=== PATIENT | female | born 1980 | race Hispanic/Latino ===

== ENCOUNTER 2016-07-29 15:07 | Emergency (ER) | payer OTHER ==
[2016-07-29 16:59] LABS: BASO % 0.3 % (0.0-2.0); EOS # 0.3 K/uL (0.0-0.7); EOS % 3.2 % (0.0-4.0); HEMATOCRIT 30.9 % (34.0-47.0); LYMPH # 1.7 K/uL (1.0-4.3); LYMPH % 16.1 % (20.0-40.0); MEAN CELL VOLUME 88.8 fL (81.0-99.0); MEAN CORPUSCULAR HEMOGLOBIN 29.7 pg (27.0-31.0); MEAN CORPUSCULAR HGB CONC 33.5 g/dL (33.0-37.0); MONO # 0.9 K/uL (0.0-0.8); RED CELL DISTRIBUTION WIDTH 13.8 % (11.5-14.5); WHITE BLOOD COUNT 10.4 K/uL (4.8-10.8)
[2016-07-29] MEDS ORDERED: Lactated Ringer's 1,000 ML IV ONE (17:33)
[2016-07-29 17:58] LABS: RBC URINE < 1 /hpf (0-3); URINE BACTERIA OCC (<OCC); URINE BILIRUBIN NEGATIVE (NEGATIVE); URINE BLOOD NEGATIVE (NEGATIVE); URINE COLOR Straw (YELLOW); URINE GLUCOSE (UA) NORMAL (Normal); URINE KETONE NEGATIVE (NEGATIVE); URINE LEUKOCYTE ESTERASE NEG Leu/uL (Negative); URINE PROTEIN NEGATIVE (NEGATIVE); URINE UROBILINOGEN NORMAL mg/dL (0.2-1.0); WBC URINE 1 /hpf (0-5)
--- NOTE | 2016-07-29 20:55 | OBHP ---
Datetime: 07/29/2016 18:00 IP Admit Plan: Discharge home Admit Comment, IP Provider: chief complaint-s/p fall HPI 35 y/o at 35.2 wga , s/p slip at 1.30 pm while enetring tana sheriff.Patient states she sl ipped and landed on her buttock.Denies abdomial trauma.Denies vaginal bleeidng or loss of fluid Denies nausea, vomiting, headache, chest pain, shortness of breath course - care withbrendan torres PMH denies PSH denies OBGYN HX Social hx denies tobacco,alcohol or illicit drug use Exam see exam section A/P 35 y/o at 35.2 wga s/p fall -check labs -continuous monitoring -iv fluids -monitor closely 8.50 p, patient denies any abdominal pain labs h/h10.3/30.9 plt 180k.ul fibrinogen 346 ultrasound bpp 8/8 fht cat1 toco irritability improved with iv fluids patient to be discharged as per dr torres follow up in am with dr torres Pelvic Type - PN: Adequate Extremities - PN: Normal Abdomen - PN: Normal Back - PN: Normal Lungs - PN: Normal Heart - PN: Normal Neurologic - PN: Normal General - PN: Normal Contraction Comments Provider: irritability Gestation - Est Wks by US: 35.2 IP Hx Assessment: The History has been Reviewed and is Current EGA AdmitDate IP: 35.2 Vital Signs Provider: Reviewed IP Chief Complaint: Trauma/Fall FHR Category Provider Fetus A: Category I Dilatation, Provider: 0 Genitourinary Exam: Normal DTRs - PN: Normal
--- NOTE | 2016-07-30 08:51 | US ---
PROCEDURE: Obstetrical ultrasound examination and biophysical profile HISTORY: pt. slipped on floor today 07/29/16 @1330 COMPARISON: Not available TECHNIQUE: Transabdominal FINDINGS: The examination demonstrates a single live intrauterine gestation in cephalic presentation. The heart rate is 142 beats per minute. A normal quantity of amniotic fluid is visualized. The DEBRA is 10.8 cm. The cervix is closed and measures 3.4 cm in length. There is no evidence of placenta previa. A normal anterior placenta is identified. biometry yields an average ultrasound age of 36 weeks 2 days. The MEDARDO by ultrasound is 08/24/2016. The estimated weight is 2739 g. Limited anatomic evaluation demonstrates a 4 chamber heart. No gross abnormality of the spine is evident. There is fluid distending the stomach and urinary bladder. Two normal kidneys are visualized without evidence of hydronephrosis. A three-vessel umbilical cord is identified. The anterior abdominal wall is intact. Limited biophysical profile examination yields a score of 8 out of 8. IMPRESSION: Single live intrauterine gestation of approximately 36 weeks 2 days gestational age. EFW is 2739 g. heart rate 142 beats per minute. Normal amniotic fluid volume. No evidence of placenta previa. Anterior placenta. Cervix long and closed. Biophysical profile score is 8 out of 8. Preliminary interpretation of this examination was reported by [facility] at 8:26 p.m. on 07/29/2016. There is concurrence of this report with the preliminary interpretation.
== END 2016-07-29 20:58 | disposition home or self-care (01) ==
LOC: C.EROB 15:07
DX: O9A.213 Injury, poisoning and certain other consequences of external causes complicating pregnancy, third trimester (principal); M53.3 Sacrococcygeal disorders, not elsewhere classified; M25.561 Pain in right knee; W01.0XXA Fall on same level from slipping, tripping and stumbling without subsequent striking against object, initial encounter; Y93.89 Activity, other specified; Y92.512 Supermarket, store or market as the place of occurrence of the external cause; Z3A.35 35 weeks gestation of pregnancy
CPT/HCPCS: 76818; 81001; 85025; 85384; 85610; 86850; 86900; 99283; J7120

== ENCOUNTER 2016-08-20 14:16 | Inpatient (IN) | payer OTHER ==
--- NOTE | 2016-08-20 14:48 | OBADHP ---
Datetime: 08/20/2016 14:42 IP Chief Complaint Other: c/o itching Admit Comment, IP Provider: at 38 +weeks came with c/o itching all over her body and de fm, no vb, lof, occ ctxs. obhx 1 x pmh choleostasis of preg med pnv all nkda psh de soch denies ve /-3 a/p at 38+weks with choleostasis of preg/itching admit to l_d npo/ivf labs cervidil cont rohit and efm anticipate dr torres aware Pelvic Type - PN: Adequate Extremities - PN: Normal Abdomen - PN: Normal Back - PN: Normal Breast - PN: Not Done Lungs - PN: Normal Heart - PN: Normal Thyroid - PN: Not Done Neurologic - PN: Normal HEENT - PN: Normal General - PN: Normal FHR - Baseline A Provider: 130 Contraction Comments Provider: irrg Comments, ACOG Physical Exam: gravid,non tender ext no edema,no calf ten occ rash IP Hx Assessment: The History has been Reviewed and is Current Vital Signs Provider: Reviewed; Within Normal Limits IP Chief Complaint: Decreased movement NICHD Variability Prov Fetus A: Moderate 6-25bpm NICHD Accel Fetus A IP Provider: [id number] FHR Category Provider Fetus A: Category I Dilatation, Provider: 1 Effacement, Provider: 50 Station, Provider: -3 Genitourinary Exam: Normal DTRs - PN: Normal EGA AdmitDate IP: 38.3 IP Adm Impression: , intrauterine IP Admit Plan: Admit to unit; Initiate labor induction protocol Datetime: 07/29/2016 18:00 Gestation - Est Wks by US: 35.2
[2016-08-20 14:50] VITALS: BMI 28.5
[2016-08-20] MEDS ORDERED: Nalbuphine 20 mg/ml Inj (1 ml) IVP PRN ×2 (15:00→21:00)
[2016-08-20] MEDS: Lactated Ringer's 1,000 ML IV SCH (16:04)
[2016-08-20 16:16] LABS: BASO % 0.3 % (0.0-2.0); EOS # 0.3 K/uL (0.0-0.7); EOS % 3.2 % (0.0-4.0); HEMOGLOBIN 10.9 g/dL (11.0-16.0); LYMPH # 1.9 K/uL (1.0-4.3); LYMPH % 17.6 % (20.0-40.0); MEAN CELL VOLUME 89.3 fL (81.0-99.0); MEAN CORPUSCULAR HEMOGLOBIN 30.1 pg (27.0-31.0); MEAN CORPUSCULAR HGB CONC 33.7 g/dL (33.0-37.0); MEAN PLATELET VOLUME 9.1 fL (7.2-11.7); MONO # 1.1 K/uL (0.0-0.8); NEUT # 7.4 K/uL (1.8-7.0); NEUT % 68.9 % (50.0-75.0); RBC 3.6 Mil/uL (3.80-5.20); RED CELL DISTRIBUTION WIDTH 13.9 % (11.5-14.5); WHITE BLOOD COUNT 10.7 K/uL (4.8-10.8)
[2016-08-20 16:22] LABS: ALBUMIN 3.4 g/dL (3.5-5.0)
[2016-08-20 16:24] LABS: GFR AFRICAN-AMERICAN > 60; GFR NON-AFRICAN AMERICAN > 60
[2016-08-20 16:25] LABS: ALB/GLOB RATIO 0.9 (1.0-2.1); ALT/SGPT 23 U/L (9-52); AST/SGOT 22 U/L (14-36); BLOOD UREA NITROGEN 7 mg/dL (7-17); CALCIUM 8.3 mg/dl (8.6-10.4)
[2016-08-20 16:32] LABS: SQUAMOUS EPITHIAL 1 /hpf (0-5); URINE BACTERIA RARE (<OCC); URINE BILIRUBIN NEGATIVE (NEGATIVE); URINE BLOOD NEGATIVE (NEGATIVE); URINE CLARITY Clear (Clear); URINE COLOR Straw (YELLOW); URINE GLUCOSE (UA) NORMAL (Normal); URINE LEUKOCYTE ESTERASE NEG Leu/uL (Negative); URINE NITRATE NEGATIVE (NEGATIVE); URINE PROTEIN NEGATIVE (NEGATIVE); URINE UROBILINOGEN NORMAL mg/dL (0.2-1.0)
[2016-08-20] MEDS ORDERED: Nalbuphine 20 mg/ml Inj (1 ml) ONE ×2 (18:20→22:30)
[2016-08-20] MEDS ORDERED: Oxytocin 30 UNIT 500 ML IV PRN (20:58)
[2016-08-21] MEDS ORDERED: Lidocaine 2% Inj (20ml) ONE (01:48)
[2016-08-21] MEDS ORDERED: Benzocaine/Menthol 20%-0.5% Topical Spray (60 ml) TOP PRN (02:22)
[2016-08-21] MEDS ORDERED: Oxycodone/Acetaminophen 5/325 mg Tab PO PRN (02:22)
--- NOTE | 2016-08-21 02:22 | OBDS ---
DELIVERY PERSONNEL Delivery Doctor: Javad Torres MD Scrub Nurse: Gissell Bustamante Dehydration Unit Operator: Peggy Calzada RN Anesthesiologist: dr. downey MATERNAL INFORMATION Delivery Anesthesia: None Medications in Delivery: pitocin 20 units Estimated Blood Loss (ml): 250 Placenta Cultured: No Maternal Complications: Precipitous Labor (<3hrs) RN Comments: live baby girl at 0144. dr. torres arrived as head . 9/9. no abnormal f inding. Provider Comments: pt was fully dilated and pushing, precipitous delivery. Both oral and nasal pass ages of baby bulb suctioned. umbicla cord was clamped and cut. baby hadned to mother on abdomen wiht rn assistance. cord blood collected x 2. first degree perineal laceration repaired with 3-0 chromic. Fundus firm, good hemostasis. no complications. live female apgars 9, 9 weight of 7lbs poun ds. ebl 250ml no coomplications LABOR SUMMARY EDC: 09/07/2016 00:00 No. Babies in Womb: 1 Attempted: No Labor Anesthesia: IV Sedation LABOR INFORMATION Reason for Induction: Other Reason for Induction Other: cholestasis Onset of Labor: 08/20/2016 20:58 Complete Dilatation: 08/21/2016 01:30 Cervical Ripening Agents: Cervidil Other Ripening Agents: n/a Oxytocin: N/A Group B Beta Strep: Negative Antibiotics # of Doses: 0 Steroids Given: None Reason Steroids Not Administered: Not Applicable MEMBRANES Membranes Rupture Method: Spontaneous Rupture of Membranes: 08/21/2016 00:21 Length of Rupture (hrs): 1.38 Amniotic Fluid Color: Clear Amniotic Fluid Amount: Moderate Amniotic Fluid Odor: Normal STAGES OF LABOR Stage 1 hrs: 4 Stage 1 min: 32 Stage 2 hrs: 0 Stage 2 min: 14 Stage 3 hrs: 0 Stage 3 min: 3 Total Time in Labor hrs: 4 Total Time in Labor min: 49 VAGINAL DELIVERY Episiotomy: None Laceration Extension: First Degree Laceration Type: Perineal Other Laceration: n/a Laceration Repair: Yes Initial Vag Sponge Count: 10 Final Vag Sponge Count: 10 Initial Vag Sharps Count: 0 Final Vag Sharps Count: 2 Sponge Count Correct: Yes Sharps Count Correct: Yes Count Comment: count correct and confirmed BABY A INFORMATION Delivery Date/Time: 08/21/2016 01:44 Method of Delivery: Vaginal Born in Route : No : N/A Forceps: N/A Vacuum Extraction: N/A Shoulder Dystocia : No SHOULDER DYSTOCIA BABY A Delivery Date/Time: 08/21/2016 01:44 PRESENTATION/POSITION BABY A Presentation: Cephalic Cephalic Presentation: Vertex Vertex Position: Left Occipital Anterior Breech Presentation: N/A PLACENTA INFORMATION BABY A Placenta Delivery Time : 08/21/2016 01:47 Placenta Method of Delivery: Spontaneous Placenta Status: Delivered SCORES BABY A Heart Rate 1 min: >100 bpm Resp Effort 1 min: Good Cry Reflex Irritability 1 min: Cough or Sneeze or Pulls Away Muscle Tone 1 min: Active Motion Color 1 min: Body [place], Extremities Blue SCORE 1 MIN: 9 Heart Rate 5 min: >100 bpm Resp Effort 5 min: Good Cry Reflex Irritability 5 min: Cough or Sneeze or Pulls Away Muscle Tone 5 min: Active Motion Color 5 min: Body [place], Extremities Blue SCORE 5 MIN: 9 INFORMATION BABY A Gestational Age at Delivery: 37.4 Gestational Status: Term Outcome : Liveborn Infant Condition : Stable Infant Sex: Female IDENTIFICATION/MEDS BABY A ID Band Number: [id number] ID Band Location: Right Leg; Right Arm Sensor Applied: Yes Sensor Number: [id number] Sensor Location : Cord Clamp Vitamin K Given : Aquamephyton 0.5 mg IM Erythromycin Given: Given Both Eyes WEIGHT/LENGTH BABY A Birthweight (gms): 3170 Infant Weight (lb): 7 Weight (oz): 0 Length Inches: 19.00 Length cms: 48.3 CORD INFORMATION BABY A No. Cord Vessels: 3 Nuchal Cord : N/A Nuchal Cord Other: 0 True Knot: 0 Cord Blood Taken: Yes Infant Suction: None ASSESSMENT BABY A Complications: None Infant Complications Other: none Physical Findings at Delivery: Within Normal Limits Respirations: Appears Normal Fern Cutter/ALS Called : No Care By: RICK Rob and endorsed to RICK Torres Transferred To: Remains with Mother
[2016-08-21] MEDS ORDERED: Oxytocin 30 UNIT 30 UNITS/500 ML BAG IV PRN (05:00)
[2016-08-21] MEDS: Lactated Ringer's 1,000 ML IV SCH (06:56)
[2016-08-21] MEDS: Oxycodone/Acetaminophen 5/325 mg Tab PO PRN (09:45)
[2016-08-21] MEDS: Multiple Vitamins Tab PO SCH (18:40)
[2016-08-22 08:28] LABS: BASO # 0.1 K/uL (0.0-0.2); BASO % 0.5 % (0.0-2.0); EOS # 0.5 K/uL (0.0-0.7); HEMOGLOBIN 10.2 g/dL (11.0-16.0); LYMPH # 2.1 K/uL (1.0-4.3); MEAN CELL VOLUME 90.3 fL (81.0-99.0); MEAN CORPUSCULAR HEMOGLOBIN 29.9 pg (27.0-31.0); MEAN CORPUSCULAR HGB CONC 33.1 g/dL (33.0-37.0); MONO % 7.8 % (0.0-10.0); NEUT # 8.9 K/uL (1.8-7.0); NEUT % 70.7 % (50.0-75.0); RBC 3.41 Mil/uL (3.80-5.20); RED CELL DISTRIBUTION WIDTH 14.1 % (11.5-14.5); WHITE BLOOD COUNT 12.6 K/uL (4.8-10.8)
[2016-08-22] MEDS: Multiple Vitamins Tab PO SCH (09:04)
--- NOTE | 2016-08-22 09:51 | OBPPN ---
Datetime: 08/22/2016 09:48 PP Pain Prov: Within normal limits PP Nausea Prov: Denies PP Flatus Prov: Yes PP BM Prov: No PP Breasts Prov: Normal PP Heart Prov: Normal PP Lungs Prov: Normal PP Abdomen/Uterus Prov: Normal PP Lochia Prov: Normal PP Vulva/Perineum Prov: Normal PP CVA Tenderness Prov: Normal PP Extremities Prov: Normal PP Impression Prov: Normal progression PP Plan Prov: Continue present management PP Progress Note Prov: pt seen and examiend reporst cramping controlled with medacint. pt denies nay fever, chillsn ause, vomiting, cp, sob vss pe see above a/p s/p ppd #1 with chronic acymsptoms anemia, currenlty stable -cont pain managment -regular diet -encourage breasrt feeding/ambuaiton -antic d/ bi am Vital Signs Provider PP: Reviewed; Within Normal Limits
--- NOTE | 2016-08-22 09:51 | OBDCSUM ---
Datetime: 08/22/2016 09:39 Discharged to, Provider: Home Follow up at, Provider: Dr Franco Disch Instr Activity: Normal activity Disch Instr Diet: Regular Discharge Instructions, Provider: Routine instructions given Discharge Diagnosis, Provider: Term Delivered Discharge Time: 08/23/2016 09:00 Follow up in weeks, Provider: 6 weeks Disch Referrals: None Contraception discussed, Prov: Yes Disch Activity Restrictions: No exercising; No lifting; No sexual activity; Nothing in vagina - Inte rcourse, tampons, douche Discharge Comment, Provider: d/c in am Contraception after Delivery: Not Planning to Use
[2016-08-22] MEDS: Oxycodone/Acetaminophen 5/325 mg Tab PO PRN (10:50)
[2016-08-23 08:20] VITALS: BP 98/56; PULSE 75; RESP 18; TEMP 97.6; O2SAT 99
--- NOTE | 2016-08-23 08:43 | OBPPN ---
Datetime: 08/23/2016 08:40 PP Pain Prov: Within normal limits PP Nausea Prov: Denies PP Flatus Prov: Yes PP Breasts Prov: Normal PP Heart Prov: Normal PP Lungs Prov: Normal PP Abdomen/Uterus Prov: Normal PP Lochia Prov: Normal PP Vulva/Perineum Prov: Normal PP CVA Tenderness Prov: Normal PP Extremities Prov: Normal PP Comments Phys Exam Prov: Abd: Soft,NT, BS- present. UT- Firm, NT PP Impression Prov: Normal progression PP Plan Prov: Discharge PP Progress Note Prov: S/P , PPD#2 CLinically Stable. Plan: D/C Home. Vital Signs Provider PP: Reviewed
[2016-08-23] MEDS: Multiple Vitamins Tab PO SCH (09:08)
--- NOTE | 2016-08-23 11:03 | OBDCSUM ---
Datetime: 08/23/2016 11:01 Discharged to, Provider: Home Follow up at, Provider: Dr Franco Disch Instr Activity: Normal activity Disch Instr Diet: Regular Discharge Instructions, Provider: Routine instructions given Discharge Diagnosis, Provider: Term Delivered Discharge Time: 08/23/2016 09:01 Follow up in weeks, Provider: 6 weeks Disch Referrals: None Contraception discussed, Prov: Yes Disch Activity Restrictions: No sexual activity; Nothing in vagina - [place], tampons, douche Contraception after Delivery: Not Planning to Use
== END 2016-08-23 10:00 | disposition home or self-care (01) | DRG 775 ==
LOC: C.EROB 14:16 → C.4D 14:49 → C.4M 08-21 03:30
PROVIDERS: ADMIT Obstetrics & Gynecology; ATTEND Obstetrics & Gynecology
PROC: 3E0P7GC Introduction of Other Therapeutic Substance into Female Reproductive, Via Natural or Artificial Opening (ICD-10-PCS; 2016-08-20)
PROC: 10E0XZZ Delivery of Products of Conception, External Approach (ICD-10-PCS; principal; 2016-08-21)
PROC: 0HQ9XZZ Repair Perineum Skin, External Approach (ICD-10-PCS; 2016-08-21)
DX: O26.62 Liver and biliary tract disorders in childbirth (principal); K83.1 Obstruction of bile duct; O62.3 Precipitate labor; O36.8190 Decreased fetal movements, unspecified trimester, not applicable or unspecified; O99.02 Anemia complicating childbirth; D64.9 Anemia, unspecified; O70.0 First degree perineal laceration during delivery; Z3A.38 38 weeks gestation of pregnancy; Z37.0 Single live birth